=== PATIENT | male | born 1960 | race Caucasian/White ===

== ENCOUNTER → 2016-08-18 | Outpatient (CLI) | payer BC ==
[~2016-08-18] MED LIST: ASPI-345; ATOR40TA2; BECL25SP NS; CHOL4PAC16 PO; CLOP75TA3; FERR325T36 PO; LSNP20T PO; MECL-105 PO; METF500T4 PO; MNTL10T PO; NF-ESOM40C
--- NOTE | 2016-08-18 11:09 | Diagnostic Imaging Report ---
INDICATION: Tightening bolt last night and began to have pain along the third to fifth metacarpals. FINDINGS: Three views show no fracture. The articulating surfaces are smooth with the joint spaces well preserved. No periosteal reactive changes to suggest a stress fracture. No radiopaque foreign bodies. IMPRESSION: Normal right hand. Dictated by: Dictated on workstation # [id number]
== END ==
LOC: RAD 09:49
PROVIDERS: ATTEND Physician Assistant Surgical
DX: M79.641 Pain in right hand (principal)
CPT/HCPCS: 73130